=== PATIENT | female | born 1975 | race Two or more races ===

== ENCOUNTER → 2024-09-25 07:16 | Outpatient (REF) | payer BC, SELFPAY | LOC: RCS 07:16 | PROVIDERS: ATTENDING PHYSICIAN Internal Medicine Cardiovascular Disease; FAMILY PHYSICIAN Physician Assistant Medical | DX: R00.2 Palpitations (principal); T45.1X5D Adverse effect of antineoplastic and immunosuppressive drugs, subsequent encounter; Z85.3 Personal history of malignant neoplasm of breast | CPT/HCPCS: 93306; 93356 ==